=== PATIENT | male | born 2000 | race Two or more races ===

== ENCOUNTER 2022-10-02 21:36 | Emergency (ER) | payer MEDICAID ==
[~2022-10-02] VITALS: Ht 188 cm; Wt 95.4 kg
[2022-10-02 21:44] VITALS: BP 134/57; PULSE 62; RESP 19; TEMP 97.8; O2SAT 98
[2022-10-02] MEDS ORDERED: KETOROLAC TROMETH 30 MG/ML 1ML VIAL IM ONE (23:00)
== END 2022-10-02 23:15 | disposition home or self-care (01) ==
LOC: ER 21:36
DX: S93.492A Sprain of other ligament of left ankle, initial encounter (principal); X50.1XXA Overexertion from prolonged static or awkward postures, initial encounter; Y93.67 Activity, basketball; Y92.320 Baseball field as the place of occurrence of the external cause; Y99.8 Other external cause status
CPT/HCPCS: 73610; 96372; 99283; J1885

== ENCOUNTER 2024-01-01 00:39 | Emergency (ER) | payer MEDICAID ==
[~2024-01-01] VITALS: Ht 188 cm; Wt 100.0 kg
[2024-01-01 00:49] VITALS: BP 105/69; PULSE 66; RESP 17; TEMP 97.9; O2SAT 99
[2024-01-01] MEDS ORDERED: IBUP-1456 PO (02:20)
== END 2024-01-01 02:42 | disposition home or self-care (01) ==
LOC: ER 00:39
DX: S53.492A Other sprain of left elbow, initial encounter (principal); Z79.899 Other long term (current) drug therapy; X58.XXXA Exposure to other specified factors, initial encounter; Y93.89 Activity, other specified; Y92.39 Other specified sports and athletic area as the place of occurrence of the external cause; Y99.8 Other external cause status
CPT/HCPCS: 73080